=== PATIENT | male | born 1950 | race Caucasian/White ===

== ENCOUNTER → 2018-10-29 | Outpatient (CLI) | payer OTHER, MEDICARE ==
[~2018-10-29] MED LIST: GADOBUTROL 10 ML VIAL IVP ONE
== END ==
LOC: FIMAGING 11:47
PROVIDERS: ATTEND Emergency Medicine
DX: G31.9 Degenerative disease of nervous system, unspecified (principal); R53.1 Weakness; R25.1 Tremor, unspecified; R27.8 Other lack of coordination
CPT/HCPCS: 70553; A9585

== ENCOUNTER 2018-11-19 07:29 | Inpatient (IN) | payer OTHER, MEDICARE ==
[2018-11-19] MEDS ORDERED: NS 1,000 ML IV ONE (07:31)
[2018-11-19] MEDS ORDERED: ASPIRIN EC 325 MG TAB PO ONE ×2 (07:31→07:54)
[2018-11-19] MEDS ORDERED: FAMOTIDINE 20 MG TAB PO ONE (07:31)
[2018-11-19] MEDS ORDERED: DIAZEPAM 5 MG TAB PO ONE (07:31)
[2018-11-19] MEDS ORDERED: diphenhydrAMINE 25 MG CAP PO ONE ×2 (07:31→07:54)
[2018-11-19] MEDS ORDERED: FAMOTIDINE 20 MG TAB ONE (07:54)
[2018-11-19] MEDS ORDERED: DIAZEPAM 5 MG TAB ONE (07:55)
[2018-11-19 08:09] LABS: PLATELET COUNT 195 10^3/uL (150-400)
[2018-11-19 08:37] LABS: INR 0.9 (0.83-1.16); PROTIME(PATIENT) 12.4 SEC (12.0-15.0)
--- NOTE | 2018-11-19 08:47 | PDHPUP ---
History & Physical Update H&P update statement: This history and physical update is based on an assessment of the patient which was completed after admission or registration (within 24 hours), but prior to the surgery/procedure. H&P update: H&P reviewed & patient examined, no change in patient's condition since H&P completed
--- NOTE | 2018-11-19 08:48 | PDPROPOC ---
Sedation Plan of Care Sedation Plan of Care: vital signs stable, mental status noted, patient educated of risks, benefits, alternatives, patient can tolerate sedation ASA Classification: ASA 3 Planned drugs: fentanyl, midazolam Mallampati Score: Class 2 Mallampati Reference Image: Patient passed 3-3-2 rule?: Yes
[2018-11-19] MEDS ORDERED: LIDOCAINE 1% 300 MG/30 ML SDV ONE (08:54)
[2018-11-19] MEDS ORDERED: IOPAMIDOL (ISOVUE-370) 150 ML BTL IV ONE (08:55)
[2018-11-19] MEDS ORDERED: HEPARIN 10,000 UNIT/10 ML MDV (1,000 UNIT/ML) ONE (08:55)
[2018-11-19] MEDS ORDERED: VERAPAMIL 5 MG/2 ML VIAL ONE (08:55)
[2018-11-19] MEDS ORDERED: fentaNYL 100 MCG/2 ML INJ ONE ×2 (08:55→10:09)
[2018-11-19] MEDS ORDERED: lamoTRIgine 100 MG TAB PO SCH (09:00)
--- NOTE | 2018-11-19 09:16 | PDDXCAT ---
Diagnostic Cath Note - . Date: 11/19/18 Principal Java Software Engineer: Risa Indication: CCC Class III and IV angina on medical treatment, other (Coronary artery disease by Heart SCAN CCS and NYHA CLASS III symptoms on medical therapy) - Procedure Access: right wrist Procedure: left heart catheterization, coronary angiography, left ventriculogram , other (FRACTIONAL FLOW RESERVE OF LAD (RESTING, CONTRAST, AND ADENOSINE) IVUS OF LAD) - Materials Left Heart Cath size: 6F Left Heart Cath materials: JL3.5, JR4.0, pigtail, other (6 [place] JL4 guiding catheter) - Findings-Left Heart Catheterization LM: The left main is 6mm in size and trifurcates into a LAD, and Circumflex system. LAD: The LAD is 3mm in size. There is a 70% obstruction at the bifurcation of the second and principal diagonal (D2) there is a 90% ostial stenosis of the diagonal at its takeoff from the LAD. There is NICK III flow. The second diagonal is the principal diagonal as noted and there is complex atheroma at the bifurcation point with disease extending into the LAD distal to the bifurcation. FFR with Adenosine demonstrated FFR of 0.82. IVUS revea;s 72% stenosis of the LAD just proximal to the bifurcation consistent with flow limiting disease. LCX: The left circumflex is 3mm in size. There is an 80% obstruction in the first OM at the takeoff of the left circumflex. The second OM is completely occluded at its origin from the left circumflex and fills via weak left to left collaterals from the first obtuse marginal. RCA: The right coronary artery is 3mm in size and dominant. There is a 40% lesion at the region of the acute marginal takedown and a 30% lesion in the proximal segment of the vessel. The RCA gives rise to a PDA branch. There is NICK III flow throughout. Ramus: The Ramus is a 1.5mm vessel with a 90% ostial obstruction. The vessel is totally occluded approximately 20 mm after the takeoff from the left main. EDP: 20mmHg LVEF: 65% Wall motion: On the LV gram there is normal LV systolic function. The EF is 65% . There are no resting segmental wall motion abnormalities. 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 There is no gradient on pullback across the aortic valve. There is no evidence of geo dissection or aneurysm formation of the thoracic aorta. - Findings-Right Heart Catheterization AO: 115/78/93 Complications: NONE Estimated blood loss: <50ml Closure method: TR Band Assessment: The patient has barrow vessel coronary disease. There is a 72% lesion proximal to the LAD and major diagonal bifurcation. The patient also has significant disease and flow limiting disease of the proximal first obtuse marginal (80%) and 100% occlusion of the ramus and second obtuse marginal. Plan: The patient has severe barrow vessel coronary disease with obstructive disease of the LAD diagonal bifurcation, obtuse marginal branches, and principal diagonal as well as a small ramus intermedius vessel. 70% lesion at the bifurcation point of his LAD. The patient will proceed with a consultation with our cardiovascular surgery department for a CABG with HILLMAN to the LAD and SVG to diagonal and first obtuse marginal with provisional graft of OM2 if it is found to be large enough to graft at the time of surgery. Intervention: NONE
[2018-11-19] MEDS ORDERED: MIDAZOLAM 2 MG/2 ML VIAL ONE ×3 (09:23→09:48)
[2018-11-19] MEDS ORDERED: ADENOSINE 90 MG/30 ML VIAL IV ONE (10:10)
[2018-11-19] MEDS ORDERED: HYDROCODONE/APAP 5/325 TAB PO PRN (10:52)
[2018-11-19] MEDS ORDERED: NITROGLYCERIN 0.4 MG BTL SL PRN (10:52)
[2018-11-19] MEDS ORDERED: OXYCODONE/APAP 5/325 TAB PO PRN (10:52)
[2018-11-19] MEDS ORDERED: ATROPINE SULFATE 1 MG/10 ML SYR IVP PRN (10:52)
[2018-11-19] MEDS ORDERED: ONDANSETRON 4 MG/2 ML VIAL IVP PRN (10:52)
--- NOTE | 2018-11-19 11:44 | PDMN ---
Medical Necessity Medical necessity: [facility] Cardiovascular Surgery or Procedure: 68 yo s/p cardiac cath w/ sig vessel disease, cardiothoracic surgery to consult, CABG pending. RICH IP only.
--- NOTE | 2018-11-19 12:48 | CPEKG ---
Test Reason : OPEN Blood Pressure : / mmHG Vent. Rate : 073 BPM Atrial Rate : 073 BPM P-R Int : 170 ms QRS Dur : 093 ms QT Int : 377 ms P-R-T Axes : 035 -44 029 degrees QTc Int : 416 ms Sinus rhythm Left anterior fascicular block Abnormal R-wave progression, early transition Confirmed by Jack Ring ([id number]) on 11/19/2018 12:48:05 PM Referred By: Shaka Lord Confirmed By:Jack Ring
[2018-11-19] MEDS: ALPRAZolam 1 MG TAB PO SCH (22:05)
[2018-11-20] MEDS: FINASTERIDE 5 MG TAB PO SCH (08:44)
[2018-11-20] MEDS: CHOLECALCIFEROL VIT D3 1,000 UNITS TAB PO SCH (08:45)
[2018-11-20] MEDS: lamoTRIgine 100 MG TAB PO SCH (08:45)
[2018-11-20] MEDS: CYANO/VITAMIN B12 1000 MCG TAB PO SCH (08:46)
[2018-11-20] MEDS: ASPIRIN 81 MG CHEWABLE TAB PO SCH (08:49)
[2018-11-20] MEDS ORDERED: ROSUVASTATIN CALCIUM 20 MG TAB PO SCH (09:00)
--- NOTE | 2018-11-20 14:21 | ASMTCMCOM ---
CM Note CM Note Notes: Chart Reviewed. Pt is a 68 yr old admitted with CAD, Anginia and had a left heart cath. He is schedule to have a CABG 11/21/[address]ay. Spiritual care will meet with Pt and to complete MDPOA paper work. Needs are TBD at this time. Pt will most likely d/c home Independantly. CM available for needs. Date Signed: 11/20/2018 02:20 PM Electronically Signed By:Mary Gaspar
--- NOTE | 2018-11-20 15:01 | PDCARPN ---
Cardiology Progress Note Chief Complaint: Patient reports no chest pain. Does admit some anxiety about upcoming surgery. Assessment/Plan: Assessment: 68-year-old male who reports SOB with exercise for last few months, with occasional atypical chest pressure relieved by burping. Known to have subclinical CAD based off of cardiac calcium scan done in October of 2018, bipolar disorder, BPH. Admitted 11/19/2018 for diagnostic coronary angiogram, noting to have flow limiting disease of LAD and large 1st diagonal, 1st OM, and total occluded 2nd OM being fed by [id number] collateralization. LVEF was 65% , normal LV systolic function, EDP of [address] surgery consultation done. 11/20/2018: Patient reporting no chest pain pressure or symptoms suggesting of ischemia. Maintaining sinus rhythm with occasional PVC during the night. Carotid ultrasound done in preparation for bypass surgery, showing moderate arthrosclerotic plaque in bilateral carotid bulbs, left to right system both showing velocities that correlate to less than 50% diameter stenosis of the internal carotid arteries. Plan: 1. CAD: Patient noted with 4 vessel disease, plan on bypass surgery to be done tomorrow. Patient reporting no symptoms suggesting of ischemia. Remains on anti-platelet therapy of aspirin. 2. Hyperlipidemia: Patient is on Crestor 3. Carotid artery disease: Noted no flow limiting disease, less than 50% stenosis bilateral by velocity. Anti-platelet therapy of aspirin, secondary risk prevention Crestor. 11/20/18 14:57 Subjective: Denies of any chest pressure or pain. Reports no shortness of breath. Denies of any orthopnea, PND, edema, lightheadedness, near-syncope or syncopal events. Reviewed/Discussed With: other (Dr. Lord) Objective: Vital Signs (8 Hrs) Temp Pulse Resp BP Pulse Ox 11/20/18 11:50 36.8 C 76 15 122/75 H 91 L 11/20/18 08:00 36.4 C 71 13 130/78 H 90 L Intake/Output (24 Hrs) 11/19/18 11/20/18 11/21/18 05:59 05:59 05:59 Intake Total 950 Output Total 2200 Balance -1250 Intake: Oral (ml) 950 Output: Urine (ml) 2200 Toilet 800 Urinal 1400 Other: Weight 95.254 kg Intake Quantity Yes Sufficient Result Diagrams: 11/19/18 07:40 11/21/18 03:36 - Physical Exam Constitutional: WDWN, healthy appearing, no apparent distress Ears, Nose, Mouth, Throat: moist mucous membranes Cardiovascular: regular rate and rhythm, no murmurs, no rubs, pulses symmetric bilat, No jugular vein distention Peripheral Pulses: 2+: carotid (R), carotid (L), dorsalis-pedis (R), dorsalis- pedis (L) Respiratory: clear to auscultate bilat, no crackles, no wheezes Gastrointestinal: normoactive bowel sounds, no masses Skin: no rashes, warm, no edema, other (Right wrist, catheter insertion site, with mild ecchymosis, no redness, swelling, drainage, or signs of infection. No ) Neurologic: AAOx3 Psychiatric: cooperative, interactive ICD10 Worksheet Patient Problems: Problems Problem Status Onset CAD (coronary artery disease), knik coronary artery Acute - ICD10 Problem Qualifiers (1) CAD (coronary artery disease), knik coronary artery
[2018-11-20] MEDS ORDERED: CHLORHEXIDINE GLUC HIBICLENS 118 ML BTL TP SCH (21:00)
[2018-11-20] MEDS: ALPRAZolam 1 MG TAB PO SCH (22:07)
[2018-11-20] MEDS: MUPIROCIN 2% 22 GM OINT NS SCH (22:08)
[2018-11-20] MEDS: TAMSULOSIN HCL 0.4 MG CAP PO SCH (22:08)
[2018-11-20] MEDS: TEMAZEPAM 15 MG CAP PO PRN (22:23)
[2018-11-21] MEDS ORDERED: MILRINONE/DEXTROSE/100 ML BAG IV ONE (05:58)
[2018-11-21] MEDS ORDERED: NA BICARBONATE 50 MEQ/50 ML VIAL ONE ×2 (05:58→13:20)
[2018-11-21] MEDS ORDERED: PROTAMINE SULFATE 50 MG/5 ML VIAL IVP ONE ×2 (05:58→07:36)
[2018-11-21] MEDS ORDERED: CALCIUM CHLORIDE 1 GM/10 ML INJ ONE ×2 (05:58→06:00)
[2018-11-21] MEDS ORDERED: AMINOCAPROIC ACID 5 GM/20 ML VIAL ONE ×2 (05:58→06:00)
[2018-11-21] MEDS ORDERED: ADENOSINE 6 MG/2 ML VIAL ONE (05:59)
[2018-11-21] MEDS ORDERED: niCARdipine/NACL/200 ML BAG IV ONE (05:59)
[2018-11-21] MEDS ORDERED: AMIODARONE HCL 150 MG/3 ML VIAL ONE ×2 (05:59→06:01)
[2018-11-21] MEDS ORDERED: ceFAZolin 1 GM VIAL ONE (05:59)
[2018-11-21] MEDS ORDERED: DOPamine/DEXTROSE 400 MG/250 ML BAG IV ONE (05:59)
[2018-11-21] MEDS ORDERED: HEPARIN 10,000 UNIT/10 ML MDV (1,000 UNIT/ML) ONE ×2 (05:59→06:01)
[2018-11-21] MEDS ORDERED: LIDOCAINE 2% 100 MG/5 ML SYR ONE (06:00)
[2018-11-21] MEDS ORDERED: NITROGLYCERIN/D5W 50 MG/250 ML BOTTLE IV ONE (06:00)
[2018-11-21] MEDS ORDERED: ALBUMIN 5% 250 ML BOTTLE IV ONE ×2 (06:00→09:32)
[2018-11-21] MEDS ORDERED: SODIUM BICARBONATE 50 MEQ/50 ML SYR ONE (06:00)
[2018-11-21] MEDS ORDERED: MAGNESIUM SULFATE 1 GM/2 ML VIAL ONE (06:01)
[2018-11-21] MEDS ORDERED: CITRATE DEXTROSE SOLN 500 ML BAG ONE (06:01)
[2018-11-21] MEDS ORDERED: methylPREDNISolone SOD SUCC 1 GM/8 ML VIAL ONE (06:01)
[2018-11-21] MEDS ORDERED: MANNITOL 25% 12.5 GM/50 ML VIAL IVP ONE (07:00)
[2018-11-21] MEDS ORDERED: ceFAZolin 2 GM/DEXTROSE 100 ML IV ONE (07:00)
[2018-11-21] MEDS ORDERED: CARDIOPLEGIC SOLUTION 1,052.8 ML PF ONE (07:00)
[2018-11-21] MEDS ORDERED: NOREPINEPHRINE BITARTRATE 16 MG in NS 250 ML IV ONE (07:00)
[2018-11-21] MEDS ORDERED: INSULIN REGULAR HUMAN 100 UNIT in NS 100 ML IV ONE (07:00)
[2018-11-21] MEDS ORDERED: VERAPAMIL 5 MG, NITROGLYCERIN 2.5 MG, HEPARIN 500 UNIT, SODIUM BICARBONATE 0.2 MEQ in L... MISC ONE (07:00)
[2018-11-21] MEDS ORDERED: AMINOCAPROIC ACID 5 GM/20 ML VIAL IV ONE (07:00)
[2018-11-21] MEDS ORDERED: PHENYLEPHRINE HCL 50 MG in NS 250 ML IV ONE ×2 (07:00→11:15)
[2018-11-21] MEDS ORDERED: LIDOCAINE 1% 2 ML INJ ID PRN (07:00)
[2018-11-21] MEDS ORDERED: niCARdipine/NACL 200 ML IV ONE (07:00)
[2018-11-21] MEDS ORDERED: CITRATE DEXTROSE SOLN 500 ML BAG MISC ONE (07:00)
[2018-11-21] MEDS ORDERED: VERAPAMIL 5 MG/2 ML VIAL ONE ×2 (07:36→10:41)
--- NOTE | 2018-11-21 07:37 | PDGENHP ---
History and Physical - Chief Complaint CAD - History of Present Illness 68M with steady decline in exertional abilities, chest complaints suggestive of angina, and positive calcium score s/p diagnostic LHC with findings of severe CAD in need of surgical revascularization. Pt with normal LVEF. Carotid US negative for significance obstructive disease. No TTE in records. Pt currently comfortable w/o complaints. History Information - Allergies/Home Medication List Allergies/Adverse Reactions: shellfish derived Allergy (Verified 11/16/18 10:36) Home Medications: ALPRAZolam [Xanax 1 MG (*)] 1 mg PO HS 11/16/18 [Last Taken Unknown] Aspirin [Aspirin 81mg (*)] 81 mg PO DAILY 11/16/18 [Last Taken Unknown] Cholecalciferol Vit D3 [Vitamin D3 (*)] 1,000 units PO DAILY 11/16/18 [Last Taken Unknown] Cyanocobalamin [Vitamin B12 (*)] 1,000 mcg PO DAILY 11/16/18 [Last Taken Unknown ] Finasteride [Proscar 5 MG (*)] 5 mg PO DAILY 11/16/18 [Last Taken Unknown] [place]-3 Fatty Acids [Fish Oil 1000 mg (*)] 1,000 mg PO DAILY 11/16/18 [Last Taken Unknown] Rosuvastatin Calcium [Crestor 20mg (*)] 20 mg PO DAILY 11/16/18 [Last Taken Unknown] Tamsulosin HCl [Flomax 0.4 MG (*)] 0.4 mg PO DAILY 11/16/18 [Last Taken Unknown] lamoTRIgine [Lamictal] 300 mg PO DAILY 11/16/18 [Last Taken Unknown] I have personally reviewed and updated: medical history, social history, surgical history - Past Medical History hyperlipidemia, psychiatric history Additional medical history: BPH - Surgical History Reports: no pertinent surgical hx - Social History Smoking Status: Former smoker Review of Systems Review of Systems: Constitutional: Reports: no symptoms EENMT: Reports: no symptoms Respiratory: Reports: no symptoms Gastrointestinal: Reports: no symptoms Genitourinary: Reports: no symptoms Muscolosketal: Reports: no symptoms Skin: Reports: no symptoms Neurological: Reports: no symptoms Physical Exam Physical Exam: Temp Pulse Resp BP Pulse Ox 36.8 C 80 16 104/66 93 11/21/18 04:00 11/21/18 04:00 11/21/18 04:00 11/21/18 04:00 11/21/18 04:00 O2 (L/minute) 2 Constitutional: no apparent distress, appears nourished Eyes: PERRL, anicteric sclera, EOMI Ears, Nose, Mouth, Throat: moist mucous membranes, hearing normal, ears appear normal, no oral mucosal ulcers Cardiovascular: regular rate and rhythym, no murmur, rub, or gallop, No edema Respiratory: no respiratory distress, no rales or rhonchi, clear to auscultation Gastrointestinal: normoactive bowel sounds, soft, non-tender abdomen, no palpable masses Genitourinary: no bladder fullness, no bladder tenderness Skin: warm, normal color, no rashes or abrasions, no fluctuance, no induration, No mottled Musculoskeletal: full muscle strength, no muscle tenderness, normal joint ROM, no joint effusions Psychiatric: interacting appropriately, not anxious, not encephalopathic, thought process linear Lab Data & Imaging Review 11/19/18 07:40 11/21/18 03:36 WBC 7.60 10^3/uL (3.80-9.50) 11/19/18 07:40 RBC 5.23 10^6/uL (4.40-6.38) 11/19/18 07:40 Hgb 16.8 g/dL (13.7-17.5) 11/19/18 07:40 Hct 47.0 % (40.0-51.0) 11/19/18 07:40 MCV 89.9 fL (81.5-99.8) 11/19/18 07:40 MCH 32.1 pg (27.9-34.1) 11/19/18 07:40 MCHC 35.7 g/dL (32.4-36.7) 11/19/18 07:40 RDW 11.9 % (11.5-15.2) 11/19/18 07:40 Plt Count 195 10^3/uL (150-400) 11/19/18 07:40 MPV 9.1 fL (8.7-11.7) 11/19/18 07:40 Neut % (Auto) 60.1 % (39.3-74.2) 11/19/18 07:40 Lymph % (Auto) 19.7 % (15.0-45.0) 11/19/18 07:40 [place] % (Auto) 8.4 % (4.5-13.0) 11/19/18 07:40 Eos % (Auto) 8.8 % (0.6-7.6) H 11/19/18 07:40 Baso % (Auto) 1.7 % (0.3-1.7) 11/19/18 07:40 Nucleat RBC Rel Count 0.0 % (0.0-0.2) 11/19/18 07:40 Absolute Neuts (auto) 4.56 10^3/uL (1.70-6.50) 11/19/18 07:40 Absolute Lymphs (auto) 1.50 10^3/uL (1.00-3.00) 11/19/18 07:40 Absolute Monos (auto) 0.64 10^3/uL (0.30-0.80) 11/19/18 07:40 Absolute Eos (auto) 0.67 10^3/uL (0.03-0.40) H 11/19/18 07:40 Absolute Basos (auto) 0.13 10^3/uL (0.02-0.10) H 11/19/18 07:40 Absolute Nucleated RBC 0.00 10^3/uL (0-0.01) 11/19/18 07:40 Immature Gran % 1.3 % (0.0-1.1) H 11/19/18 07:40 Immature Gran # 0.10 10^3/uL (0.00-0.10) 11/19/18 07:40 PT 12.4 SEC (12.0-15.0) 11/19/18 07:40 INR 0.90 (0.83-1.16) 11/19/18 07:40 Sodium 136 mEq/L (135-145) 11/21/18 03:36 Potassium 4.2 mEq/L (3.5-5.2) 11/21/18 03:36 Chloride 106 mEq/L (97-110) 11/21/18 03:36 Carbon Dioxide 23 mEq/l (22-31) 11/21/18 03:36 Anion Gap 7 mEq/L (6-14) 11/21/18 03:36 BUN 16 mg/dL (7-23) 11/21/18 03:36 Creatinine 0.9 mg/dL (0.7-1.3) 11/21/18 03:36 Estimated GFR > 60 11/21/18 03:36 Glucose 97 mg/dL (70-100) 11/21/18 03:36 Hemoglobin A1c 5.8 % (4.0-6.0) 11/19/18 07:46 Estim Average Glucose 120 mg/dL (68-126) 11/19/18 07:46 Calcium 9.1 mg/dL (8.5-10.4) 11/21/18 03:36 Magnesium 2.0 mg/dL (1.6-2.3) 11/19/18 07:40 Triglycerides 128 mg/dL (40-150) 11/19/18 07:40 Cholesterol 148 mg/dL (140-220) 11/19/18 07:40 Cholesterol Risk Factr 0.4 (0.2-1.0) 11/19/18 07:40 LDL Cholesterol, Calc 52 mg/dL (80-100) L 11/19/18 07:40 LDL Risk Factor 0.4 (0.2-1.0) 11/19/18 07:40 VLDL Cholesterol 26 mg/dL (8-25) H 11/19/18 07:40 Non-HDL Cholesterol 78 mg/dL (90-129) L 11/19/18 07:40 HDL Cholesterol 70 mg/dL (40-65) H 11/19/18 07:40 LDL/HDL Ratio 0.75 RATIO (1.00-3.64) L 11/19/18 07:40 Cholesterol/HDL Ratio 2.11 RATIO (1.00-4.97) 11/19/18 07:40 Patient ABO/Rh B POSITIVE 11/20/18 16:07 Antibody Screen NEGATIVE 11/20/18 16:07 Visualized and Interpreted Chest x-ray results: Yes Chest X-Ray results: normal Visualized and Interpreted imaging results: Yes Interpretation: carotids w/o significant obstructive disease Visualized and Interpreted EKG results: Yes EKG Interpretation: Positive for: normal sinsus rhythm Assessment & Plan Assessment: Severe CAD - CABG
--- NOTE | 2018-11-21 07:54 | PDANEPAE ---
ANE History of Present Illness here for CABG ANE Past Medical History - Cardiovascular History Hx Hypertension: Yes Hx Arrhythmias: No Hx Chest Pain: Yes Hx Coronary Artery / Peripheral Vascular Disease: Yes Hx CHF / Valvular Disease: No Hx Palpitations: No - Pulmonary History Hx COPD: No Hx Asthma/Reactive Airway Disease: No Hx Recent Upper Respiratory Infection: No Hx Oxygen in Use at Home: No Hx Sleep Apnea: No Sleep Apnea Screening Result - Last Documented: Positive - Endocrine History Hx Diabetes: No Hypothyroid: No Hyperthyroid: No - Renal History Hx Renal Disorders: No - Liver History Hx Hepatic Disorders: No - Neurological & Psychiatric Hx Hx Neurological and Psychiatric Disorders: No - Cancer History Hx Cancer: No ANE Review of Systems Review of systems is: negative Review of Systems: - Exercise capacity Exercise capacity: <4 METS ANE Patient History - Allergies Allergies/Adverse Reactions: shellfish derived Allergy (Verified 11/16/18 10:36) - Home Medications Home medications: home medication list seen and reviewed Home Medications: ALPRAZolam [Xanax 1 MG (*)] 1 mg PO HS 11/16/18 [Last Taken Unknown] Aspirin [Aspirin 81mg (*)] 81 mg PO DAILY 11/16/18 [Last Taken Unknown] Cholecalciferol Vit D3 [Vitamin D3 (*)] 1,000 units PO DAILY 11/16/18 [Last Taken Unknown] Cyanocobalamin [Vitamin B12 (*)] 1,000 mcg PO DAILY 11/16/18 [Last Taken Unknown ] Finasteride [Proscar 5 MG (*)] 5 mg PO DAILY 11/16/18 [Last Taken Unknown] [place]-3 Fatty Acids [Fish Oil 1000 mg (*)] 1,000 mg PO DAILY 11/16/18 [Last Taken Unknown] Rosuvastatin Calcium [Crestor 20mg (*)] 20 mg PO DAILY 11/16/18 [Last Taken Unknown] Tamsulosin HCl [Flomax 0.4 MG (*)] 0.4 mg PO DAILY 11/16/18 [Last Taken Unknown] lamoTRIgine [Lamictal] 300 mg PO DAILY 11/16/18 [Last Taken Unknown] - NPO status NPO Status: no food or drink >8 hours NPO Since - Liquids (Date): 11/20/18 NPO Since - Liquids (Time): 23:30 NPO Since - Solids (Date): 11/20/18 NPO Since - Solids (Time): 21:00 - Smoking Hx Smoking Status: Former smoker ANE Labs/Vital Signs - Labs Result Diagrams: 11/19/18 07:40 11/21/18 03:36 - Vital Signs Vital Signs: reviewed preoperatively; see RN documention for details Blood Pressure: 104/66 Heart Rate: 80 Respiratory Rate: 16 O2 Sat (%): 93 Height: 177.8 cm Weight: 92.125 kg ANE Physical Exam - Airway Neck exam: FROM Mallampati Score: Class 1 - Pulmonary Pulmonary: no respiratory distress - Cardiovascular Cardiovascular: regular rate and rhythym - ASA Status ASA Status: IV ANE Anesthesia Plan Anesthesia Plan: general endotracheal anesthesia Lines/Monitors: arterial line, central line
[2018-11-21] MEDS ORDERED: MIDAZOLAM 2 MG/2 ML VIAL IVP ONE (08:03)
[2018-11-21] MEDS ORDERED: fentaNYL 250 MCG/5 ML INJ ONE ×2 (08:07→09:52)
[2018-11-21] MEDS ORDERED: LR 1,000 ML IV ONE (08:10)
[2018-11-21] MEDS ORDERED: PROPOFOL/EMULSION 500 MG/50 ML BOTTLE IV ONE (08:12)
--- NOTE | 2018-11-21 08:14 | SOAPPROG ---
JOSSIE Progress Note Assessment/Plan: Assessment: Plan: 11/21/18 08:11 met w pt 11/20/18, w pt and spouse 11/21 review of procedure, indications, risk and complications 1% mortality, bleeding , infection, stroke, 4% transfusion req alternatives high risk PCI all questions addressed Objective: Vital Signs Temp Pulse Resp BP Pulse Ox 36.8 C 80 16 104/66 93 11/21/18 07:30 11/21/18 08:03 11/21/18 08:03 11/21/18 08:03 11/21/18 08:03 Laboratory Results 11/19/18 07:40 11/21/18 03:36 11/20/18 11/21/18 11/22/18 05:59 05:59 05:59 Intake Total 950 1355 Output Total 2200 1725 Balance -1250 -370 PT 12.4 SEC (12.0-15.0) 11/19/18 07:40 INR 0.90 (0.83-1.16) 11/19/18 07:40 ICD10 Worksheet Patient Problems: Problems Problem Status Onset CAD (coronary artery disease), viejas coronary artery Acute
[2018-11-21] MEDS ORDERED: ESMOLOL HCL 100 MG/10 ML VIAL IV ONE (08:21)
[2018-11-21] MEDS ORDERED: ROCURONIUM 50 MG/5 ML VIAL ONE (08:48)
[2018-11-21] MEDS ORDERED: ePHEDrine SULFATE 25 MG/5 ML SYR ONE ×3 (09:01→12:18)
[2018-11-21] MEDS ORDERED: PHENYLEPHRINE HCL 100 MCG/ML SYR ONE ×2 (09:51)
[2018-11-21] MEDS ORDERED: PAPAVERINE HCL 60 MG/2 ML SDV ONE (10:41)
[2018-11-21] MEDS ORDERED: DEXMEDETOMIDINE HCL 400 MCG in NS 100 ML IV SCH (11:00)
[2018-11-21] MEDS ORDERED: MINERAL OIL 10 ML VIAL ONE (11:45)
[2018-11-21] MEDS ORDERED: SUGAMMADEX SODIUM 200 MG/2 ML VIAL IVP ONE (12:12)
[2018-11-21] MEDS ORDERED: HYDROmorphONE/DILAUDID 2 MG/ML INJ ONE (12:18)
[2018-11-21] MEDS ORDERED: PANTOPRAZOLE SODIUM 40 MG VIAL IVP ONE (12:30)
[2018-11-21] MEDS ORDERED: MEPERIDINE 25 MG/0.5 ML AMP IVP PRN (12:30)
[2018-11-21] MEDS ORDERED: niCARdipine/NACL 200 ML IV SCH (12:30)
[2018-11-21] MEDS ORDERED: METOCLOPRAMIDE 10 MG/2 ML VIAL IVP PRN (12:30)
[2018-11-21] MEDS ORDERED: D50W 25 GM/50 ML SYR IVP PRN (12:30)
[2018-11-21] MEDS ORDERED: POTASSIUM Cl (KCl) 50 ML IV PRN (12:30)
[2018-11-21] MEDS ORDERED: ACETAMINOPHEN 650 MG SUPP PR PRN (12:30)
[2018-11-21] MEDS ORDERED: CEPACOL LOZENGE PO PRN (12:30)
[2018-11-21] MEDS ORDERED: MAGNESIUM HYDROXIDE 30 ML UDCUP PO PRN (12:30)
[2018-11-21] MEDS ORDERED: BISACODYL 10 MG SUPP PR PRN (12:30)
[2018-11-21] MEDS ORDERED: POLYETHYLENE GLYCOL 3350 17 GM PKT PO PRN (12:30)
[2018-11-21] MEDS ORDERED: INSULIN REGULAR HUMAN 100 UNIT in NS 100 ML IV SCH (12:30)
[2018-11-21] MEDS ORDERED: NS 1,000 ML IV SCH (12:30)
[2018-11-21] MEDS ORDERED: ALBUMIN 5% 250 ML IV PRN (12:30)
[2018-11-21] MEDS ORDERED: SODIUM CL NASAL 45 ML BTL EACHNARE PRN (12:30)
[2018-11-21] MEDS ORDERED: LACTULOSE 20 GM/30 ML UDCUP PO PRN (12:30)
[2018-11-21] MEDS ORDERED: fentaNYL 100 MCG/2 ML INJ ONE (12:43)
[2018-11-21] MEDS ORDERED: NITROGLYCERIN/DEXTROSE 250 ML IV SCH (13:00)
--- NOTE | 2018-11-21 13:27 | GOP ---
[f rep st] OPERATIVE REPORT DATE OF OPERATION: 11/21/2018 SURGEON: Beny Garay DO MATE RELIEF: PRICILLA Larios and EDUARDO Rosas ANESTHESIA: Mitchel Rose MD PREOPERATIVE DIAGNOSIS: Severe three-vessel disease with crescendo angina. POSTOPERATIVE DIAGNOSIS: Severe three-vessel disease with crescendo angina. PROCEDURE PERFORMED: FINDINGS: DESCRIPTION OF PROCEDURE: Patient was consented for surgery, brought to the operating room, intubate d. Monitoring lines were placed. He was prepped and draped in sterile classical manner. Sternotomy was performed. Both mammaries were harvested while the left radial and left thigh vein was harveste d endoscopically by Nilda Way and Thierry Smallwood. We confirmed adequate arch flow in the left hand pre p rior to removing the vessel as well as post removing the left radial artery. All conduits were excel lent. Distal targets were all good quality. LV function appeared to be well preserved. The aorta w as without thickening or calcification. He was then heparinized, cannulated in the standard fashion. Bypass was begun. A cardioplegic arrest was obtained with antegrade cardioplegia utilizing del Nid o solution and protocol, as well as topical hypothermia in the form of slush. We then performed all distal and proximal grafts bringing the right internal mammary artery through the transverse sinus. A 35 mm ArtriClip was applied to the base of the left atrial appendage. Cross-clamp was removed with suction on the ascending aortic vent. Spontaneous cardiac activity was noted to resume. The patien t was rewarmed and weaned from bypass. Heparin was reversed with protamine. Cannula was removed and oversewn. Two ventricular pacing wires, 2 pleural and 1 mediastinal drains were placed. The thymic fat and pericardium were reapproximated. The sternum was closed in standard fashion. Patient was r eturned to ICU in stable condition. OPERATION PERFORMED: 1. Coronary bypass grafting x4 with three arterial conduits and one venous conduit with left interna l mammary artery to the left anterior descending, right internal mammary artery to the first obtuse m arginal via the transverse sinus, radial artery to the diagonal, left internal mammary artery to the left anterior descending, and saphenous vein graft to the posterolateral circumflex. 2. AtriClip the left atrial appendage. 3. Endoscopic vein harvest. 4. [place] of left radial artery with Harmonic Scalpel. /[id number]/MODL
[2018-11-21] MEDS: FINASTERIDE 5 MG TAB PO SCH (13:55)
[2018-11-21] MEDS: lamoTRIgine 100 MG TAB PO SCH (13:56)
[2018-11-21] MEDS: MUPIROCIN 2% 22 GM OINT NS SCH ×2 (13:57→20:22)
[2018-11-21] MEDS: TAMSULOSIN HCL 0.4 MG CAP PO SCH (13:58)
[2018-11-21] MEDS: ceFAZolin 2 GM/DEXTROSE 100 ML IV SCH ×2 (14:12→22:16)
[2018-11-21] MEDS ORDERED: SODIUM BICARBONATE 50 MEQ/50 ML SYR IVP ONE (14:30)
[2018-11-21] MEDS: ASPIRIN 81 MG CHEWABLE TAB PO SCH (14:41)
[2018-11-21] MEDS ORDERED: NA BICARBONATE 50 MEQ/50 ML VIAL IV ONE (15:00)
--- NOTE | 2018-11-21 15:04 | CPEKG ---
Test Reason : OPEN Blood Pressure : / mmHG Vent. Rate : 083 BPM Atrial Rate : 083 BPM P-R Int : 194 ms QRS Dur : 116 ms QT Int : 402 ms P-R-T Axes : 027 -63 079 degrees QTc Int : 473 ms Sinus rhythm Left anterior fascicular block Confirmed by Jack Ring ([id number]) on 11/21/2018 3:04:17 PM Referred By: Beny Garay Confirmed By:Jack Ring
--- NOTE | 2018-11-21 15:14 | POSTANESTH ---
Post Anesthetic Evaluation Cardiovascular Status: Normal, Stable Respiratory Status: Requires Airway Assist Level of Consciousness/Mental Status: Moderately Sleepy Pain Control: Adequate, Prn Tx Ordered Nausea/Vomiting Control: Adequate, Prn Tx Ordered Complications Possibly Related to Anesthesia: None Noted
[2018-11-21] MEDS: fentaNYL 100 MCG/2 ML INJ IVP PRN ×3 (16:16→21:20)
[2018-11-21] MEDS ORDERED: KETOROLAC 30 MG/1 ML SDV IVP ONE (16:45)
[2018-11-21] MEDS: HYDROCODONE/APAP 5/325 TAB PO PRN ×2 (19:18→23:04)
[2018-11-21] MEDS: ONDANSETRON 4 MG/2 ML VIAL IVP PRN (19:19)
[2018-11-21] MEDS: SENNOSIDES/DOCUSATE SODIUM TAB PO SCH (21:35)
[2018-11-22] MEDS: fentaNYL 100 MCG/2 ML INJ IVP PRN ×5 (00:27→08:01)
[2018-11-22] MEDS: TEMAZEPAM 15 MG CAP PO PRN ×2 (02:25→21:31)
[2018-11-22] MEDS: HYDROCODONE/APAP 5/325 TAB PO PRN ×2 (03:01→07:00)
[2018-11-22 05:20] LABS: PLATELET COUNT 166 10^3/uL (150-400)
[2018-11-22] MEDS: ceFAZolin 2 GM/DEXTROSE 100 ML IV SCH ×3 (06:32→21:37)
[2018-11-22] MEDS: HEPARIN 5,000 UNIT/0.5 ML INJ SC SCH ×3 (06:32→21:35)
--- NOTE | 2018-11-22 08:03 | SOAPPROG ---
SOAP Progress Note Assessment/Plan: POD #1: Urgent CABGx4 (HILLMAN-LAD, ARSLAN-OM1, LRA-diag, SVG-PL circ), AtriClip ANNEL , open harvest LRA, EVH LLE Severe CAD with agnina s/p urgent CABGx4 - [place] catheter out, AL out, CTs to bulb suction - Oral CCB for RA spasm prophylaxis x 30 days to be started - BB/ASA/Statin for secondary prevention when appropriate - Transfer to PCU Acute post-op blood loss anemia - Stable without the need for transfusions BPH - Home meds restarted Psychiatric issues - Home meds restarted DVT prophylaxis - SCDs/heparin SQ Subjective: Has some back and chest pain. Denies SOB. Land hand without deficits. Objective: Vital Signs Temp Pulse Resp BP Pulse Ox 36.6 C 86 20 95/59 L 92 11/22/18 06:00 11/22/18 07:00 11/22/18 07:00 11/22/18 07:00 11/22/18 07:00 Laboratory Results 11/22/18 05:00 11/22/18 05:00 11/21/18 11/22/18 11/23/18 05:59 05:59 05:59 Intake Total 1355 1360.2 Output Total 1725 1783 Balance -370 -422.8 PT 12.4 SEC (12.0-15.0) 11/19/18 07:40 INR 0.90 (0.83-1.16) 11/19/18 07:40 Physical Exam - Physical Exam General Appearance: WD/WN, alert, no apparent distress EENT: No scleral icterus (R), No scleral icterus (L) Neck: normal inspection Respiratory: No respiratory distress Cardiac/Chest: regular rate, rhythm Abdomen: non-tender, soft, No distended Skin: normal color, warm/dry, other (all incisions C/D/I) Neuro/Psych: no motor/sensory deficits, alert, normal mood/affect, oriented x 3 ICD10 Worksheet Patient Problems: Problems Problem Status Onset Acute blood loss anemia Acute CAD (coronary artery disease), hopi coronary artery Acute S/P CABG x 4 Acute
[2018-11-22] MEDS: oxyCODONE IR 5 MG TAB PO PRN (08:30)
[2018-11-22] MEDS: ONDANSETRON 4 MG/2 ML VIAL IVP PRN (08:35)
[2018-11-22] MEDS: lamoTRIgine 100 MG TAB PO SCH ×2 (08:37→12:15)
[2018-11-22] MEDS: SENNOSIDES/DOCUSATE SODIUM TAB PO SCH ×2 (08:37→21:29)
[2018-11-22] MEDS: PANTOPRAZOLE SODIUM 40 MG TAB PO SCH (08:37)
[2018-11-22] MEDS: FINASTERIDE 5 MG TAB PO SCH ×2 (08:37→12:14)
[2018-11-22] MEDS: ASPIRIN 81 MG CHEWABLE TAB PO SCH (08:37)
[2018-11-22] MEDS: TAMSULOSIN HCL 0.4 MG CAP PO SCH ×3 (08:37→21:29)
[2018-11-22] MEDS: MUPIROCIN 2% 22 GM OINT NS SCH ×2 (08:38→21:35)
[2018-11-22] MEDS: valACYclovir 500 MG TAB PO PRN ×2 (10:53→21:34)
[2018-11-22] MEDS: amLODIPine BESYLATE 5 MG TAB PO SCH (11:37)
[2018-11-22] MEDS: METOPROLOL TARTRATE 25 MG TAB PO SCH ×2 (11:37→21:30)
[2018-11-22] MEDS: HYDROmorphONE/DILAUDID 2 MG TAB PO PRN ×3 (11:59→21:30)
[2018-11-22] MEDS: traMADol 50 MG TAB PO PRN ×2 (13:19→19:38)
[2018-11-22] MEDS: ACETAMINOPHEN 325 MG TAB PO PRN ×2 (13:23→18:15)
--- NOTE | 2018-11-22 13:28 | ASMTCMCOM ---
CM Note CM Note Notes: Letters prepared for patient and his who had a 3 week trip to [facility] planned and were unable to go due to emergent medical problems. CM will follow. Date Signed: 11/22/2018 01:27 PM Electronically Signed By:Melanie Gomez LCSW
[2018-11-22] MEDS: ONDANSETRON DISINTEGRATING 4 MG TAB PO PRN (18:15)
[2018-11-22] MEDS ORDERED: ALBUMIN 5% 250 ML BOTTLE IV ONE (22:51)
[2018-11-23] MEDS: ACETAMINOPHEN 325 MG TAB PO PRN ×2 (00:06→06:43)
[2018-11-23] MEDS: traMADol 50 MG TAB PO PRN ×3 (00:06→12:24)
[2018-11-23] MEDS: HYDROmorphONE/DILAUDID 2 MG TAB PO PRN ×4 (02:11→22:49)
[2018-11-23] MEDS: oxyCODONE IR 5 MG TAB PO PRN ×4 (04:06→17:08)
[2018-11-23] MEDS: TEMAZEPAM 15 MG CAP PO PRN (04:06)
[2018-11-23] MEDS: HEPARIN 5,000 UNIT/0.5 ML INJ SC SCH ×3 (06:43→20:50)
[2018-11-23] MEDS ORDERED: METOPROLOL TARTRATE 25 MG TAB PO ONE (07:18)
--- NOTE | 2018-11-23 07:37 | SOAPPROG ---
SOAP Progress Note Assessment/Plan: POD #2: Urgent CABGx4 (HILLMAN-LAD, ARSLAN-OM1, LRA-diag, SVG-PL circ), AtriClip ANNEL , open harvest LRA, EVH LLE Severe CAD with agnina s/p urgent CABGx4 - Norvas for RA spasm prophylaxis x 30 days - Titrate BB as tolerated, increased to 25 mg PO BID today - ASA for secondary prevention, anticipate resuming home statin tomorrow Acute post-op blood loss anemia - Stable without the need for transfusions BPH - Home meds Psychiatric issues - Home meds DVT prophylaxis - SCDs/heparin SQ Dispo: Possible mediastinal chest tube dc Anticipate restarting statin tomorrow Inc Restoril to 30 mg PO HS PRN Recheck K later today One more night of PRN IV Dilaudid PTOT Subjective: Unhappy about ability to sleep overnight. After a lengthly discussion regarding pros/cons of benzos + narcotics in the setting of resp depression, we will increase Restoril to 30 mg PO HS PRN. He received Restoril 15 mg PO x 2 doses. He is on home Xanax 1 mg PO HS PRN but deferred to trying Restoril again tonight. Pain was initially not well-controlled, but now improved. Objective: Vital Signs Temp Pulse Resp BP Pulse Ox 37.2 C 97 26 H 129/77 H 93 11/23/18 04:00 11/23/18 04:00 11/23/18 04:00 11/23/18 04:00 11/23/18 04:00 Laboratory Results 11/23/18 04:10 11/23/18 04:10 11/22/18 11/23/18 11/24/18 05:59 05:59 05:59 Intake Total 1360.2 3095 Output Total 1783 1915 Balance -422.8 1180 PT 12.4 SEC (12.0-15.0) 11/19/18 07:40 INR 0.90 (0.83-1.16) 11/19/18 07:40 - Physical Exam General Appearance: WD/WN, alert, no apparent distress EENT: No scleral icterus (R), No scleral icterus (L) Neck: normal inspection Respiratory: No respiratory distress Cardiac/Chest: regular rate, rhythm Abdomen: non-tender, soft, No distended Skin: normal color, warm/dry, other (all incisions C/D/I) Neuro/Psych: no motor/sensory deficits, alert, normal mood/affect, oriented x 3 ICD10 Worksheet Patient Problems: Problems Problem Status Onset Acute blood loss anemia Acute CAD (coronary artery disease), [place] coronary artery Acute S/P CABG x 4 Acute
[2018-11-23] MEDS: ASPIRIN 81 MG CHEWABLE TAB PO SCH (08:55)
[2018-11-23] MEDS: PANTOPRAZOLE SODIUM 40 MG TAB PO SCH (08:55)
[2018-11-23] MEDS: SENNOSIDES/DOCUSATE SODIUM TAB PO SCH ×2 (08:56→20:51)
[2018-11-23] MEDS: MUPIROCIN 2% 22 GM OINT NS SCH (08:58)
[2018-11-23] MEDS: amLODIPine BESYLATE 5 MG TAB PO SCH (08:59)
[2018-11-23] MEDS: lamoTRIgine 100 MG TAB PO SCH (08:59)
[2018-11-23] MEDS: FINASTERIDE 5 MG TAB PO SCH (08:59)
[2018-11-23] MEDS ORDERED: METOPROLOL TARTRATE 25 MG TAB PO SCH ×2 (09:00→21:00)
[2018-11-23] MEDS: ONDANSETRON DISINTEGRATING 4 MG TAB PO PRN ×2 (09:11→16:52)
[2018-11-23] MEDS ORDERED: TEMAZEPAM 15 MG CAP PO PRN (09:24)
[2018-11-23] MEDS ORDERED: FUROSEMIDE 40 MG/4 ML VIAL IVP ONE (10:27)
[2018-11-23] MEDS ORDERED: BENZONATATE 100 MG CAP PO PRN (16:20)
[2018-11-23] MEDS ORDERED: METOPROLOL TARTRATE 50 MG TAB PO ONE (16:39)
[2018-11-23] MEDS: TAMSULOSIN HCL 0.4 MG CAP PO SCH (20:51)
[2018-11-24] MEDS: ACETAMINOPHEN 325 MG TAB PO PRN (01:28)
[2018-11-24] MEDS: traMADol 50 MG TAB PO PRN (01:28)
[2018-11-24] MEDS: HEPARIN 5,000 UNIT/0.5 ML INJ SC SCH ×3 (05:52→21:04)
--- NOTE | 2018-11-24 08:22 | SOAPPROG ---
SOAP Progress Note Assessment/Plan: POD #3: Urgent CABGx4 (HILLMAN-LAD, ARSLAN-OM1, LRA-diag, SVG-PL circ), AtriClip ANNEL , open harvest LRA, EVH LLE Severe CAD with agnina s/p urgent CABGx4 - Norvasc for RA spasm prophylaxis x 30 days - Titrate BB as tolerated, increased to 50 mg PO BID today, reviewed tele --> occ PVCs - ASA for secondary prevention - Restart home statin today - TCPW out Acute post-op blood loss anemia - Stable without the need for transfusions BPH - Flomax and Proscar, no retention Bipolar disorder - Home meds DVT prophylaxis - SCDs/heparin SQ Dispo: Dc mediastinal CT, pleural CTx2 to remain Restart home Crestor Lasix 40 mg PO daily if BMP ok Recheck K tomorrow Awaiting hospital med consult re: appropriate benzodiazepine therapy as patient has taken Xanax nightly as a sleep aid (changed to Restoril in hospital) PT is recommending home with o/p rehab. Patient has significant concerns that his will not be able to assist him at home in [place]. Agreed to reeval tomorrow. Anticipate d/c Monday. Subjective: Slept well overnight. Pain controlled with APAP, Oxycodone, Tramadol, and PO Dilaudid. + Cough. Objective: Vital Signs Temp Pulse Resp BP Pulse Ox 36.7 C 81 12 97/60 L 94 11/24/18 07:59 11/24/18 07:59 11/24/18 07:59 11/24/18 07:59 11/24/18 07:59 Laboratory Results 11/23/18 04:10 11/23/18 17:15 11/23/18 11/24/18 11/25/18 05:59 05:59 05:59 Intake Total 3095 1800 Output Total 1915 2345 Balance 1180 -545 PT 12.4 SEC (12.0-15.0) 11/19/18 07:40 INR 0.90 (0.83-1.16) 11/19/18 07:40 - Physical Exam General Appearance: WD/WN, alert, no apparent distress EENT: No scleral icterus (R), No scleral icterus (L) Neck: normal inspection Respiratory: No respiratory distress Cardiac/Chest: regular rate, rhythm Abdomen: non-tender, soft, No distended Skin: normal color, warm/dry, other (all incisions C/D/I) Neuro/Psych: no motor/sensory deficits, alert, normal mood/affect, oriented x 3 ICD10 Worksheet Patient Problems: Problems Problem Status Onset Acute blood loss anemia Acute CAD (coronary artery disease), [place] coronary artery Acute Chronic Disease Mgmt/Transitional Care Acute S/P CABG x 4 Acute
[2018-11-24] MEDS: ASPIRIN 81 MG CHEWABLE TAB PO SCH (10:11)
[2018-11-24] MEDS: amLODIPine BESYLATE 5 MG TAB PO SCH (10:11)
[2018-11-24] MEDS: lamoTRIgine 100 MG TAB PO SCH (10:12)
[2018-11-24] MEDS: ROSUVASTATIN CALCIUM 20 MG TAB PO SCH (10:13)
[2018-11-24] MEDS: METOPROLOL TARTRATE 50 MG TAB PO SCH ×2 (10:13→21:02)
[2018-11-24] MEDS: SENNOSIDES/DOCUSATE SODIUM TAB PO SCH ×2 (10:13→21:01)
[2018-11-24] MEDS: FINASTERIDE 5 MG TAB PO SCH (10:14)
[2018-11-24] MEDS: PANTOPRAZOLE SODIUM 40 MG TAB PO SCH (10:14)
[2018-11-24] MEDS ORDERED: FUROSEMIDE 20 MG/2 ML VIAL IVP ONE ×2 (12:00→19:38)
[2018-11-24] MEDS ORDERED: NS 1,000 ML IV SCH (12:00)
[2018-11-24] MEDS ORDERED: FUROSEMIDE 40 MG TAB PO ONE (16:00)
--- NOTE | 2018-11-24 16:10 | ASMTCMCOM ---
CM Note CM Note Notes: Chart reviewed. PT recommends home with Outpatient Rehab and OT cleared for Home. Pt has concerns about how much his will be able to help, CM to f/u with pt to discuss. PLAN: TBD Date Signed: 11/24/2018 04:10 PM Electronically Signed By:Arabella Rothman RN
[2018-11-24] MEDS ORDERED: METOPROLOL TARTRATE 25 MG TAB PO ONE (16:45)
--- NOTE | 2018-11-24 17:18 | PDCONSULT ---
[employer] Note: Patient is a 68-year-old male with past medical history of BPH, anxiety, bipolar disorder admitted for urgent CABG. He is currently status post CABG on November 21. Medicine has been consulted for management of his anxiety and insomnia. He relates that since he has been here he has not slept well. He says that he has been taking Xanax for at least 5 years. He takes 1 mg each evening in usually sleeps well through the night although some nights he ends up taking an additional 0.5 mg. He was started on Restoril 15 mg each evening while here and says that he has been fairly anxious and unable to sleep most nights. His pain is adequately controlled after his CABG and that does not seem to be contributing to his insomnia. Past medical history Hyperlipidemia Bipolar Anxiety Insomnia Past surgical history Postop day 3 status post CABG Social No drug use Elda Dowd alcohol Family history Not pertinent Allergies Shellfish Vital signs Blood pressure 100/68, heart rate 91, oxygen saturation 94% on 4 L, respirations 17 temperature 36 degrees 0.4 Exam General no acute distress HEENT-perrla,mmm pink and acyanotic Lungs- diminished to bases Cardiovascular- regular rhythm and rate no murmurs or gallops, midline sternotomy scar appears clean dry Abdomen-soft nontender nondistended in all 4 quadrants no organomegaly Extremities-no clubbing cyanosis edema Skin-no rashes or ecchymosis Neuro-alert and oriented x3 no focal neurological deficits Psych-does not appear anxious mood normal affect appropriate 68-year-old male admitted for severe CAD for emergent CABG CABG- management per CT surgery, on aspirin statin beta-nelia. Anxiety- patient has a longstanding history of taking Ativan 1 mg HS. Would not be safe to discontinue this medication without a long slow taper. I recommend continuing at his usual home dose 1 mg HS to avoid withdrawal Bipolar- should be fine to continue Lamictal at home dose BPH- continue Flomax and finasteride Hyperlipidemia- continue rosuvastatin Prophylaxis- on aspirin heparin per CT surgery Fluids- p.o. Electrolytes- within normal limits Nutrition-cardiac diet Cor-full Dispo- inpatient for CABG
[2018-11-24] MEDS: TAMSULOSIN HCL 0.4 MG CAP PO SCH (21:01)
[2018-11-24] MEDS: ALPRAZolam 1 MG TAB PO SCH (21:03)
[2018-11-24] MEDS ORDERED: ALPRAZolam 1 MG TAB PO PRN (22:09)
[2018-11-25] MEDS ORDERED: ALPRAZolam 1 MG TAB PO PRN ×2 (00:02→15:02)
[2018-11-25] MEDS: HEPARIN 5,000 UNIT/0.5 ML INJ SC SCH ×3 (06:20→20:41)
--- NOTE | 2018-11-25 08:15 | SOAPPROG ---
SOAP Progress Note Assessment/Plan: POD #4: Urgent CABGx4 (HILLMAN-LAD, ARSLAN-OM1, LRA-diag, SVG-PL circ), AtriClip ANNEL , open harvest LRA, EVH LLE Severe CAD with angina s/p urgent CABGx4 - Norvas for RA spasm prophylaxis x 30 days - Titrate BB as tolerated, currently at 50 mg PO BID; would like to increase but BP have been soft - ASA for secondary prevention - Home Crestor - TCPW out Acute post-op blood loss anemia - Stable without the need for transfusions BPH - Flomax and Proscar, no retention Bipolar disorder - Home meds - Xanax (for sleep/insomnia) mgmt as per hospital medicine - Requiring minimal pain meds, only tylenol & tramadol ordered PRN DVT prophylaxis - SCDs/heparin SQ Hyperkalemia - resistant to multiple doses of Lasix (80 mg yesterday) - Kidney function normal, should autoregulate - Acute Rx if >5.5 Hypovolemia - 1 kg below pre-op weight - reflex tachycardia yesterday into 140's - responsive to IVF & Lopressor 12.5 PO once - encourage PO intake Acute pulmonary insufficiency - remote history of smoking - Desat to 75 when NC oxygen fell off last night - still requiring 4 L to maintain sats; dropped in mid-80s when placed to 2L - C&DB, IS Dispo: Pleural CTx2 to remain - output too high to pull Cont 40 mg lasix PO daily Recheck K tonight IVF NS 1L over 8 hours now Recheck BMP tomorrow PA/Lat CXR tomorrow AM Plan to discharge home w oxygen & o/p rehab tomorrow or Monday Subjective: Aggressive to hospital staff when he did not received 2nd dose of Xanax. Not requiring pain meds. Objective: Vital Signs Temp Pulse Resp BP Pulse Ox 36.3 C 81 10 L 97/69 L 96 11/25/18 07:35 11/25/18 07:35 11/25/18 07:35 11/25/18 07:35 11/25/18 07:35 Laboratory Results 11/23/18 04:10 11/25/18 03:55 11/24/18 11/25/18 11/26/18 05:59 05:59 05:59 Intake Total 1800 3250 Output Total 2355 2045 Balance -555 1205 PT 12.4 SEC (12.0-15.0) 11/19/18 07:40 INR 0.90 (0.83-1.16) 11/19/18 07:40 - Physical Exam General Appearance: WD/WN, alert, no apparent distress EENT: No scleral icterus (R), No scleral icterus (L) Neck: normal inspection Respiratory: No respiratory distress Cardiac/Chest: regular rate, rhythm Abdomen: non-tender, soft, No distended Skin: normal color, warm/dry, other (all incisions C/D/I) Neuro/Psych: no motor/sensory deficits, alert, normal mood/affect, oriented x 3 Extremities: L arm cdi w normal motor function, no sensation loss ICD10 Worksheet Patient Problems: Problems Problem Status Onset Acute blood loss anemia Acute CAD (coronary artery disease), [place] coronary artery Acute Chronic Disease Mgmt/Transitional Care Acute S/P CABG x 4 Acute
[2018-11-25] MEDS ORDERED: FUROSEMIDE 40 MG TAB PO SCH (09:00)
[2018-11-25] MEDS ORDERED: NS 1,000 ML IV SCH (09:30)
[2018-11-25] MEDS: ASPIRIN 81 MG CHEWABLE TAB PO SCH (10:17)
[2018-11-25] MEDS: lamoTRIgine 100 MG TAB PO SCH (10:17)
[2018-11-25] MEDS: PANTOPRAZOLE SODIUM 40 MG TAB PO SCH (10:18)
[2018-11-25] MEDS: amLODIPine BESYLATE 5 MG TAB PO SCH (10:18)
[2018-11-25] MEDS: SENNOSIDES/DOCUSATE SODIUM TAB PO SCH ×2 (10:18→20:38)
[2018-11-25] MEDS: ROSUVASTATIN CALCIUM 20 MG TAB PO SCH (10:18)
[2018-11-25] MEDS: FINASTERIDE 5 MG TAB PO SCH (10:18)
[2018-11-25] MEDS: METOPROLOL TARTRATE 50 MG TAB PO SCH ×2 (10:20→20:38)
[2018-11-25] MEDS: ACETAMINOPHEN 325 MG TAB PO PRN ×2 (10:26→20:39)
--- NOTE | 2018-11-25 15:05 | ASMTCMCOM ---
CM Note CM Note Notes: Pt reports he is worried that his is able to care for him after he is discharged. CM provided resources on Private duty care givers and the senior blue book for Zackary Salazar. At this time PT is recommending home care. CM to follow. Plan: Home vs Home Health Care Date Signed: 11/25/2018 03:04 PM Electronically Signed By:SLICK Purdy
--- NOTE | 2018-11-25 15:06 | HOSPPROG ---
Hospitalist Progress Note Assessment/Plan: 68-year-old male admitted for severe CAD for emergent CABG CABG- management per CT surgery, on aspirin statin beta-nelia. Anxiety- patient has a longstanding history of taking Ativan 1 mg HS. His pill bottle was found in his room last night and it appears as though he is actually written to have 2mg HS but he only takes 1mg and then sometimes takes an additional 0.5mg. Last night became very anxious despite 1mg dosing. Would not be safe to discontinue this medication without a long slow taper. -continue 1mg xanax HS -add 0.5 mg HS PRN Hyponatremia- mild. off IVF. If worsens check urine studies. Leukocytosis- likely APR in setting of stress. No evidence of infection. Monitor. Bipolar-continue Lamictal at home dose BPH- continue Flomax and finasteride Hyperlipidemia- continue rosuvastatin Prophylaxis- on aspirin heparin per CT surgery Fluids- p.o. Electrolytes- within normal limits Nutrition-cardiac diet Cor-full Dispo- inpatient for CABG Subjective: still coughing a lot. pain manageable. Objective: Vital Signs Temp Pulse Resp BP Pulse Ox 36.7 C 88 20 98/52 L 95 11/25/18 11:07 11/25/18 11:07 11/25/18 11:07 11/25/18 11:07 11/25/18 11:07 Laboratory Results 11/23/18 04:10 11/25/18 03:55 11/24/18 11/25/18 11/26/18 05:59 05:59 05:59 Intake Total 1800 3250 Output Total 2355 2045 810 Balance -555 1205 -810 PT 12.4 SEC (12.0-15.0) 11/19/18 07:40 INR 0.90 (0.83-1.16) 11/19/18 07:40 - Physical Exam Constitutional: no apparent distress, appears nourished, not in pain Eyes: PERRL, anicteric sclera, EOMI Ears, Nose, Mouth, Throat: moist mucous membranes, hearing normal, ears appear normal, no oral mucosal ulcers Cardiovascular: regular rate and rhythym, no murmur, rub, or gallop Respiratory: no respiratory distress, no rales or rhonchi, clear to auscultation Gastrointestinal: normoactive bowel sounds, soft, non-tender abdomen, no palpable masses Genitourinary: no bladder fullness, no bladder tenderness, no renal bruits Skin: no rashes or abrasions, no fluctuance, no induration Musculoskeletal: full muscle strength, no muscle tenderness, normal joint ROM Neurologic: AAOx3, sensation intact bilaterally Psychiatric: interacting appropriately, not anxious, not encephalopathic, thought process linear Lymph, Heme, Immunologic: no cervical LAD, no supraclavicular LAD ICD10 Worksheet Patient Problems: Problems Problem Status Onset Acute blood loss anemia Acute CAD (coronary artery disease), [place] coronary artery Acute Chronic Disease [facility]/Transitional Care Acute S/P CABG x 4 Acute
[2018-11-25] MEDS: TAMSULOSIN HCL 0.4 MG CAP PO SCH (20:38)
[2018-11-25] MEDS: ALPRAZolam 1 MG TAB PO SCH (20:40)
[2018-11-25] MEDS: traMADol 50 MG TAB PO PRN (20:40)
[2018-11-26] MEDS: ACETAMINOPHEN 325 MG TAB PO PRN ×3 (02:45→17:28)
[2018-11-26] MEDS: HEPARIN 5,000 UNIT/0.5 ML INJ SC SCH ×3 (05:08→21:20)
--- NOTE | 2018-11-26 07:47 | SOAPPROG ---
SOAP Progress Note Assessment/Plan: Assessment: POD#5 Urgent CABGx4 (HILLMAN-LAD, ARSLAN-OM1, LRA-diag, SVG-PLC), open harvest LRA, EVH LLE, prophylactic AtriClip ligation ANNEL Sx severe CAD w preserved LV systolic fx - Revascularized with 3 arterial grafts. Secondary prevention with ASA, BB, and statin. Adjunctive CCB (Norvasc) x 30 days for RA anti-spasm prophylaxis. TCPW and mediastinal drain out. Acute expected blood loss anemia - Stable without the need for transfusions. VTE prophylaxis with SCDs/heparin SQ. Acute postoperative respiratory insufficiency - Exacerbated by fluid overload and bilateral pleural tubes. Diuresis complicated by hypovolemia, electrolyte imbalance and reflex tachycardia responsive to supportive therapy. Pleural tube removal imminent. Supplemental O2 requirement expected to decrease as inspiratory volumes improve. BPH - Controlled on Flomax and Proscar. No apparent retention post moreno removal. Bipolar disorder - Home meds resumed. Hospitalist assisting with management of anxiety and insomnia. Satisfactory analgesia on tylenol & tramadol. Plan: Await CXR. Likely can at least pull rt pleural tube. Diuretic holiday. Decrease Norvasc to 2.5 mg daily. Switch metoprolol tartrate to succinate for greater beta 1 selectivity. Add Acapella to pulm hygiene. Cont inc activity as tolerated. Dispo - Anticipate home tomorrow +/- [facility]. 11/26/18 07:34 Subjective: Doing ok. IS up to 1,000. Mobility improving. Objective: Vital Signs Temp Pulse Resp BP Pulse Ox 36.4 C 78 18 90/40 L 96 11/26/18 04:00 11/26/18 04:00 11/26/18 04:00 11/26/18 04:00 11/26/18 04:00 Laboratory Results 11/23/18 04:10 11/26/18 04:55 11/25/18 11/26/18 11/27/18 05:59 05:59 05:59 Intake Total 3250 1750 Output Total 2045 2750 Balance 1205 -1000 PT 12.4 SEC (12.0-15.0) 11/19/18 07:40 INR 0.90 (0.83-1.16) 11/19/18 07:40 Holding SR. SBP somewhat labile, generally > 110 w IVF. Suppl O2 req stable at 2 lpm. Excellent UOP. Borderline high pleural tube output, L>R. Contraction alkalosis. Physical Exam - Physical Exam General Appearance: alert, no apparent distress Respiratory: decreased breath sounds (bases), other (pleural tubes to bulb suction, thin mostly serous drainage) Cardiac/Chest: regular rate, rhythm, other (Sternotomy, LLE venotomy and LUE arteriotomy CDI. Left hand CSM intact.) Abdomen: non-tender, soft Skin: warm/dry Extremities: other (no visible edema) ICD10 Worksheet Patient Problems: Problems Problem Status Onset Acute blood loss anemia Acute CAD (coronary artery disease), [place] coronary artery Acute Chronic Disease Mgmt/Transitional Care Acute S/P CABG x 4 Acute
[2018-11-26] MEDS ORDERED: POTASSIUM CL 10 MEQ TAB PO ONE (08:00)
[2018-11-26] MEDS: PANTOPRAZOLE SODIUM 40 MG TAB PO SCH (10:23)
[2018-11-26] MEDS: SENNOSIDES/DOCUSATE SODIUM TAB PO SCH (10:23)
[2018-11-26] MEDS: ASPIRIN 81 MG CHEWABLE TAB PO SCH (10:24)
[2018-11-26] MEDS: METOPROLOL SUCCINATE XR 50 MG TAB PO SCH (10:24)
[2018-11-26] MEDS: ROSUVASTATIN CALCIUM 20 MG TAB PO SCH (10:24)
[2018-11-26] MEDS: OMEGA-3 FATTY ACIDS 1,000 MG CAP PO SCH (10:24)
[2018-11-26] MEDS: lamoTRIgine 100 MG TAB PO SCH (10:24)
[2018-11-26] MEDS: FINASTERIDE 5 MG TAB PO SCH (10:25)
--- NOTE | 2018-11-26 17:29 | HOSPPROG ---
Hospitalist Progress Note Assessment/Plan: 68-year-old male admitted for severe CAD for emergent CABG CABG- management per CT surgery, on aspirin statin beta-nelia, CCB, diuretic. Anxiety- patient has a longstanding history of taking Ativan 1 mg HS. His pill bottle was found in his room last night and it appears as though he is actually written to have 2mg HS but he only takes 1mg and then sometimes takes an additional 0.5mg. sleeping better on xanax now. -continue 1mg xanax HS -0.5 mg HS PRN Hyponatremia- mild. off IVF. If worsens check urine studies. Leukocytosis- likely APR in setting of stress. No evidence of infection. Monitor. Bipolar-continue Lamictal at home dose BPH- continue Flomax and finasteride Hyperlipidemia- continue rosuvastatin Prophylaxis- on aspirin heparin per CT surgery Fluids- p.o. Electrolytes- within normal limits Nutrition-cardiac diet Cor-full Dispo- inpatient for CABG Subjective: slept great last night. no other complaints. Objective: Vital Signs Temp Pulse Resp BP Pulse Ox 36.8 C 88 16 94/56 L 93 11/26/18 15:35 11/26/18 16:00 11/26/18 15:35 11/26/18 15:35 11/26/18 16:00 Laboratory Results 11/23/18 04:10 11/26/18 04:55 11/25/18 11/26/18 11/27/18 05:59 05:59 05:59 Intake Total 3250 1750 1860 Output Total 2045 2750 1675 Balance 1205 -1000 185 PT 12.4 SEC (12.0-15.0) 11/19/18 07:40 INR 0.90 (0.83-1.16) 11/19/18 07:40 - Physical Exam Constitutional: no apparent distress, appears nourished, not in pain Eyes: PERRL, anicteric sclera, EOMI Ears, Nose, Mouth, Throat: moist mucous membranes, hearing normal, ears appear normal, no oral mucosal ulcers Cardiovascular: regular rate and rhythym, no murmur, rub, or gallop Respiratory: no respiratory distress, no rales or rhonchi, clear to auscultation Gastrointestinal: normoactive bowel sounds, soft, non-tender abdomen, no palpable masses Genitourinary: no bladder fullness, no bladder tenderness, no renal bruits Skin: no rashes or abrasions, no fluctuance, no induration Musculoskeletal: full muscle strength, no muscle tenderness, normal joint ROM Neurologic: AAOx3, sensation intact bilaterally Psychiatric: interacting appropriately, not anxious, not encephalopathic, thought process linear Lymph, Heme, Immunologic: no cervical LAD, no supraclavicular LAD ICD10 Worksheet Patient Problems: Problems Problem Status Onset Acute blood loss anemia Acute CAD (coronary artery disease), [place] coronary artery Acute Chronic Disease Mgmt/Transitional Care Acute S/P CABG x 4 Acute
[2018-11-26] MEDS ORDERED: SENNOSIDES/DOCUSATE SODIUM TAB PO PRN (21:00)
[2018-11-26] MEDS: traMADol 50 MG TAB PO PRN (21:21)
[2018-11-26] MEDS: ALPRAZolam 1 MG TAB PO SCH (21:22)
[2018-11-26] MEDS: TAMSULOSIN HCL 0.4 MG CAP PO SCH (21:22)
[2018-11-27] MEDS: HEPARIN 5,000 UNIT/0.5 ML INJ SC SCH (04:43)
--- NOTE | 2018-11-27 07:52 | SOAPPROG ---
SOAP Progress Note Assessment/Plan: Assessment: POD#6 Urgent CABGx4 (HILLMAN-LAD, ARSLAN-OM1, LRA-diag, SVG-PLC), open harvest LRA, EVH LLE, prophylactic AtriClip ligation ANNEL Sx severe CAD w preserved LV systolic fx - Revascularized with 3 arterial grafts. Secondary prevention with ASA, BB, and statin. Adjunctive CCB (Norvasc) x 30 days for RA anti-spasm prophylaxis. TCPW and drains out. Acute expected blood loss anemia - Stable without the need for transfusions. VTE prophylaxis with SCDs/heparin SQ. Acute postoperative respiratory insufficiency - Exacerbated by fluid overload and bilateral pleural tubes. Diuresis complicated by hypovolemia, electrolyte imbalance and reflex tachycardia responsive to supportive therapy. Supplemental O2 requirement expected to decrease as inspiratory volumes improve. BPH - Controlled on Flomax and Proscar. Bipolar disorder - Home meds resumed. Hospitalist assisting with management of anxiety and insomnia. Satisfactory analgesia on tylenol & tramadol. Dispo: Home today w/o services. Subjective: Ready to go home. Objective: Vital Signs Temp Pulse Resp BP Pulse Ox 36.6 C 88 16 113/71 92 11/27/18 04:00 11/27/18 04:00 11/27/18 04:00 11/27/18 04:00 11/27/18 04:00 Laboratory Results 11/23/18 04:10 11/27/18 03:57 11/26/18 11/27/18 11/28/18 05:59 05:59 05:59 Intake Total 1750 2460 Output Total 2750 2775 Balance -1000 -315 PT 12.4 SEC (12.0-15.0) 11/19/18 07:40 INR 0.90 (0.83-1.16) 11/19/18 07:40 - Physical Exam General Appearance: WD/WN, alert, no apparent distress EENT: No scleral icterus (R), No scleral icterus (L) Neck: normal inspection Respiratory: No respiratory distress Cardiac/Chest: regular rate, rhythm Abdomen: non-tender, soft, No distended Skin: normal color, warm/dry, other (all incisions C/D/I) Neuro/Psych: no motor/sensory deficits, alert, normal mood/affect, oriented x 3 Extremities: L arm cdi w normal motor function, no sensation loss ICD10 Worksheet Patient Problems: Problems Problem Status Onset Acute blood loss anemia Acute CAD (coronary artery disease), [place] coronary artery Acute Chronic Disease Mgmt/Transitional Care Acute S/P CABG x 4 Acute
--- NOTE | 2018-11-27 07:54 | PDDCSUM ---
Discharge Summary Discharge Summary: DATE OF ADMISSION: 11/19/2018 DATE OF DISCHARGE: 11/27/2018 DISPOSITION: Home without services ACTIVITY: Instructed on sternal precautions, activity restrictions, and problems to call [facility]. ADMISSION DIAGNOSES: 1. Angina 2. Severe 3-vessel coronary artery disease 3. Bipolar disorder 4. BPH 5. Normal LVEF 6. Chronic benzodiazepine use DISCHARGE DIAGNOSES: As above plus, 1. Acute blood loss anemia 2. Acute postop pulmonary insufficiency PROCEDURE PERFORMED: 11/21/2018 (Tanisha) CABGx4 (HILLMAN-LAD, ARSLAN-OM1, radial-diagonal, SVG-SHAHEED); Atriclip ANNEL, EVH left lower leg, open left radial artery harvest HISTORY OF PRESENT ILLNESS: 68M with steady decline in exertional abilities, chest complaints suggestive of angina, and positive calcium score s/p diagnostic LHC with findings of severe CAD in need of surgical revascularization. Pt with normal LVEF. Carotid US negative for significance obstructive disease. HOSPITAL COURSE BY PROBLEM LIST: Sx severe CAD w preserved LV systolic fx - Revascularized with 3 arterial grafts. Secondary prevention with ASA, BB, and statin. Adjunctive CCB (Norvasc) x 30 days for RA anti-spasm prophylaxis with 25 days remaining at discharge. Acute expected blood loss anemia - Stable without the need for transfusions. Acute postoperative respiratory insufficiency - Exacerbated by fluid overload and bilateral pleural tubes. Diuresis complicated by hypovolemia, electrolyte imbalance and reflex tachycardia responsive to supportive therapy. Supplemental O2 requirement expected to decrease as inspiratory volumes improve. BPH - Controlled on Flomax and Proscar. Bipolar disorder - Home meds resumed. Hospitalist assisting with management of anxiety, insomnia, and benzodiazepine therapy. Xanax restarted. Satisfactory analgesia on tylenol & tramadol. PERTINENT DISCHARGE CLINICAL INFORMATION: Sternotomy stable, CDI EVH left leg CDI Left forearm CDI without motor or sensation loss HR 84 BP 109/68 SpO2 93% 2L preop wt 95 kg, discharge wt 94 kg WBC 15 Hgb 12.8 Hct 37.8 Plt 133 Na 137 K 3.7 Cr 0.8 CONSULTANTS: Angelito Andrade, [facility] Medicine re: benzo therapy MEDICATIONS ON ADMISSION: Crestor 20 mg PO daily Aspirin 81 mg PO daily Flomax 0.4mg PO daily Proscar 5 mg PO daily Lamictal 300 mg PO daily Xanax 1-2 mg PO HS Valtrex PRN Fish Oil/B12/Vit D3 daily ALLERGIES/SENSITIVITIES: Shellfish DISCHARGE MEDICATIONS: CONTINUE these medications: Crestor 20 mg PO daily Aspirin 81 mg PO daily Flomax 0.4mg PO daily Proscar 5 mg PO daily Lamictal 300 mg PO daily Xanax 1-2 mg PO HS Valtrex PRN Fish Oil/B12/Vit D3 daily NEW medications: Tramadol 50-100 mg PO q 6 hr PRN pain Tylenol 325-650 mg PO q 6 hr PRN pain Norvac 2.5 mg PO daily #25 tabs (for 25 days only) Metoprolol Succinate 50 mg PO daily FOLLOW UP APPOINTMENTS: 1. CV surgery: with Dr. Garay at [facility] on 12/04/18 @ 10AM. 2. Cardiology: with Dr. Schroeder at [facility] within 4-6 weeks. Appointment to be established during surgical visit. 3. Follow up with your primary care physician. FOLLOW UP TESTING: CXR prior to surgical appointment.
--- NOTE | 2018-11-27 07:57 | PDHOMEO2F ---
Home Oxygen Face to Face Home Orders: I certify that a physician or a nurse practitioner or physician's welder assistant has had a [id number] encounter with this patient on the date of this order due to the diagnosis listed, which relates to the primary reason the patient requires home oxygen. Alternative treatments have been tried, or considered, and deemed ineffective. It is anticipated that supplemental oxygen will result in improvement with treatment. Home oxygen qualifying diagnosis: coronary artery disease s/p CABG, pulmonary insufficiency SpO2 on room air (%): 83% Frequency of home oxygen needed: continuous Home oxygen liters per minute: 1-2 Home oxygen delivery device: nasal cannula Concentrator: Yes E-tanks for mobility and back up: Yes If ordering portable O2, is the patient mobile in the home?: Yes I certify that, based on these findings, the home oxygen is medically necessary for this patient for the following length of time. Length of time home oxygen needed: 1 month
[2018-11-27 08:03] VITALS: BP 109/68
[2018-11-27] MEDS: FINASTERIDE 5 MG TAB PO SCH (08:56)
[2018-11-27] MEDS: PANTOPRAZOLE SODIUM 40 MG TAB PO SCH (08:57)
[2018-11-27] MEDS: OMEGA-3 FATTY ACIDS 1,000 MG CAP PO SCH (08:57)
[2018-11-27] MEDS: ROSUVASTATIN CALCIUM 20 MG TAB PO SCH (08:57)
[2018-11-27] MEDS: METOPROLOL SUCCINATE XR 50 MG TAB PO SCH (08:57)
[2018-11-27] MEDS: ASPIRIN 81 MG CHEWABLE TAB PO SCH (08:57)
[2018-11-27] MEDS: lamoTRIgine 100 MG TAB PO SCH (08:57)
[2018-11-27] MEDS: CYANO/VITAMIN B12 1000 MCG TAB PO SCH (09:03)
[2018-11-27] MEDS: CHOLECALCIFEROL VIT D3 1,000 UNITS TAB PO SCH (09:03)
--- NOTE | 2018-11-27 15:40 | ASDISCHSUM ---
Discharge Information Plan Status:Home with No Needs Medically Cleared to Leave:11/26/2018 Discharge Date:11/27/2018 12:59 PM CM D/C Disposition:Home, Routine, Self-Care ADT D/C Disposition:Home, Routine, Self-Care Projected Discharge Date:11/27/2018 12:59 PM Transportation at D/C:Family Discharge Delay Reason: Follow-Up Date:11/27/2018 12:59 PM Discharge Slot: Final Diagnosis:CAD, Angina Placement Information Patient Contact Information Contact Name:SONIA Relationship: Address:[address] [place] [address] City:[place] Alternate Phone: [facility]/Zip Code:[place] [address] Email: Financial Information Financial Class:Medicare Primary Plan Desc:MEDICARE INPATIENT Primary Plan Number:[id number] Secondary Plan Desc:[employer]/MDR SUPPLEMENT Secondary Plan Number:[id number] Assessment Information LACE LACE Length of stay for Answers: 7-13 days current admission Acuity / Level of Answers: Yes Care: Did the patient have an inpatient admission? Comorbidities - select Answers: Coronary Artery Disease all that apply # of Emergency department Answers: 0 visits in the last 6 months Score: 10 Date Signed: 11/27/2018 03:39 PM Electronically Signed By:Penny Gonzales [facility] CM Progress Note CM Note CM Note Notes: Chart Reviewed. Pt is a 68 yr old admitted with CAD, Anginia and had a left heart cath. He is schedule to have a CABG 11/21/[address] Garay. Spiritual care will meet with Pt and [facility]. Needs are TBD at this time. Pt will most likely d/c home Independantly. CM available for needs. Date Signed: 11/20/2018 02:20 PM Electronically Signed By:Mary Gaspar [facility] CM Progress Note CM Note CM Note Notes: Letters prepared for patient and his who had a 3 week trip to [facility] planned and were unable to go due to emergent medical problems. CM will follow. Date Signed: 11/22/2018 01:27 PM Electronically Signed By:Melanie Gomez LCSW [facility] CM Progress Note CM Note CM Note Notes: Chart reviewed. PT recommends home with Outpatient Rehab and OT cleared for Home. Pt has concerns about how much his will be able to help, CM to f/u with pt to discuss. PLAN: TBD Date Signed: 11/24/2018 04:10 PM Electronically Signed By:Arabella Rothman RN [facility] CM Progress Note CM Note CM Note Notes: Pt reports he is worried that his is able to care for him after he is discharged. CM provided resources on Private duty care givers and the senior blue book for Zackary Salazar. At this time PT is recommending home care. CM to follow. Plan: Home vs Home Health Care Date Signed: 11/25/2018 03:04 PM Electronically Signed By:SLICK Purdy Case Management Discharge Plan Note Case Management Discharge Discharge Order Complete? Answers: Yes Patient to Obtain Answers: via Family Medications Transportation Arranged Answers: Family/Friends Transport will Pick (Date 11/27/2018 12:00 AM & Time) Family Notified Answers: Yes Notes: by patient Discharge Comments Notes: Spoke with pt in the room and with cardiology PA, and with RN. Pt concerned that his may be overwhelmed with his needs, so CM provided a private duty agency list for pt to find supportive in home help. Pick Up prefers pt attend outpatient rehab vs HHC. No further CM needs noted at this time. Date Signed: 11/27/2018 03:38 PM Electronically Signed By:Penny Gonzales Intervention Information Intervention Type:*IM-Signed Date of Service:11/27/2018 10:34 AM Patient Type:Inpatient Staff Member:Sylvia Mukherjee Hours: Discipline: Severity: Comment:
--- NOTE | 2018-11-30 11:21 | PQFORM ---
PHYSICIAN QUERY FORM Needs Your Response This query form is being sent to you to assure this patient record is coded properly. Please respond to the question below: PATROL MOTHER QUESTION: Ame Keegan Hal, The discharge summary dated 11/27/2018 has documentation of two diagnoses that describe the patient's postoperative respiratory issues. Postoperative respiratory insufficiency and postoperative pulmonary insufficiency appear to be the same condition, but actually each has a different distinct code assignment. In order to assure coding is accurate, which diagnosis more correctly describes the patient's postoperative respiratory diagnosis? Postoperative pulmonary insufficiency Postoperative respiratory insufficiency Other Clinically unable to determine Many thanks, BREANA Waller [facility]/Coding Department W: [phone] INSTRUCTIONS FOR RESPONSE: Answer question by clicking on the "Edit Document" button. Move cursor to area below the stars. When complete, hit "Save." Click on the "Sign" button, then click "Sign" again. Type in your PIN and hit "Enter." Postoperative pulmonary insufficiency MTDD
== END 2018-11-27 12:59 | disposition home or self-care (01) | DRG 233 ==
LOC: FCATH 07:29 → F2W 10:53 → F2N 11-21 07:45 → F2W 11-23 12:10
PROVIDERS: ADMIT Internal Medicine Cardiovascular Disease; ATTEND Thoracic Surgery (Cardiothoracic Vascular Surgery)
PROC: B2151ZZ Fluoroscopy of Left Heart using Low Osmolar Contrast (ICD-10-PCS; 2018-11-19)
PROC: 4A033BC Measurement of Arterial Pressure, Coronary, Percutaneous Approach (ICD-10-PCS; 2018-11-19)
PROC: B2111ZZ Fluoroscopy of Multiple Coronary Arteries using Low Osmolar Contrast (ICD-10-PCS; 2018-11-19)
PROC: B240ZZ3 Ultrasonography of Single Coronary Artery, Intravascular (ICD-10-PCS; 2018-11-19)
PROC: 4A023N7 Measurement of Cardiac Sampling and Pressure, Left Heart, Percutaneous Approach (ICD-10-PCS; 2018-11-19)
PROC: 02100A9 Bypass Coronary Artery, One Artery from Left Internal Mammary with Autologous Arterial Tissue, Open Approach (ICD-10-PCS; principal; 2018-11-21 08:15)
PROC: 03BC0ZZ Excision of Left Radial Artery, Open Approach (ICD-10-PCS; principal; 2018-11-21 08:15)
PROC: 06BQ4ZZ Excision of Left Saphenous Vein, Percutaneous Endoscopic Approach (ICD-10-PCS; principal; 2018-11-21 08:15)
PROC: 02L70ZK Occlusion of Left Atrial Appendage, Open Approach (ICD-10-PCS; principal; 2018-11-21 08:15)
PROC: 5A1221Z Performance of Cardiac Output, Continuous (ICD-10-PCS; principal; 2018-11-21 08:15)
PROC: 02100AW Bypass Coronary Artery, One Artery from Aorta with Autologous Arterial Tissue, Open Approach (ICD-10-PCS; principal; 2018-11-21 08:15)
PROC: 02100A8 Bypass Coronary Artery, One Artery from Right Internal Mammary with Autologous Arterial Tissue, Open Approach (ICD-10-PCS; principal; 2018-11-21 08:15)
PROC: 021009W Bypass Coronary Artery, One Artery from Aorta with Autologous Venous Tissue, Open Approach (ICD-10-PCS; principal; 2018-11-21 08:15)
DX: I25.110 Atherosclerotic heart disease of native coronary artery with unstable angina pectoris (principal); D62 Acute posthemorrhagic anemia; E87.79 Other fluid overload; J95.1 Acute pulmonary insufficiency following thoracic surgery; E86.1 Hypovolemia; E87.1 Hypo-osmolality and hyponatremia; E87.5 Hyperkalemia; F13.90 Sedative, hypnotic, or anxiolytic use, unspecified, uncomplicated; E78.5 Hyperlipidemia, unspecified; F31.9 Bipolar disorder, unspecified; N40.0 Benign prostatic hyperplasia without lower urinary tract symptoms; Z87.891 Personal history of nicotine dependence
CPT/HCPCS: 82435-PO; 82565-PO; 82947-PO; 83605-ER; 84132-PO; 84295-PO; 84520-PO; 85014-ER; 97116-GP; 97161-GP; 97165-GO; 97530-GP; 97535-GO; C1753; C1769; C1887; J0153; J0282; J0690; J1170; J1265; J1644; J1815; J1885; J1940; J2001; J2150; J2250; J2260; J2270; J2370; J2405; J2440; J2704; J2720; J2765; J2930; J3010; J3475; P9041; Q9967

== ENCOUNTER → 2018-12-04 | Outpatient (CLI) | payer OTHER, MEDICARE | LOC: FIMAGING 09:20 | PROVIDERS: ATTEND Thoracic Surgery (Cardiothoracic Vascular Surgery) | DX: Z95.1 Presence of aortocoronary bypass graft (principal) ==

== ENCOUNTER → 2019-01-02 | Outpatient (CLI) | payer OTHER, MEDICARE | LOC: FIMAGING 11:23 | PROVIDERS: ATTEND Thoracic Surgery (Cardiothoracic Vascular Surgery) | DX: J98.11 Atelectasis (principal); J90 Pleural effusion, not elsewhere classified; J42 Unspecified chronic bronchitis; Z95.1 Presence of aortocoronary bypass graft ==